=== PATIENT | female | born 1965 | race Two or more races ===

== ENCOUNTER 2020-02-26 09:48 | Day surgery (SDC) | payer OTHER ==
[2020-02-22 13:00] LABS: HEMATOCRIT 40.7 % (36.0-47.0); HEMOGLOBIN 14.1 g/dL (12.0-15.5); MEAN CORPUSCULAR HEMOGLOBIN 31.4 pg (27.0-33.4); MEAN CORPUSCULAR HGB CONC 34.7 g/dL (32.0-36.0); MEAN CORPUSCULAR VOLUME 91 fl (80-97); PLATELET COUNT 280 10^3/uL (150-450); RED CELL DISTRIBUTION WIDTH 13.3 % (11.5-14.0); WHITE BLOOD COUNT 4.7 10^3/uL (4.0-10.5)
[2020-02-22 13:15] LABS: INTERNATIONAL RATION (INR) 0.97; PROTHROMBIN TIME 13.1 SEC (11.4-15.4)
[2020-02-22 13:16] LABS: PARTIAL THROMBOPLASTIN TIME 33.5 SEC (23.5-35.8)
[~2020-02-26 09:48] MED LIST: CEFAZOLIN 1 GM/D5W RTU 1 GM/50 ML RTUPB IV PRN; CEFAZOLIN SODIUM 1 GM in DEXTROSE 5%-WATER 50 ML IV PRN
[2020-02-26] MEDS ORDERED: CEFAZOLIN 1 GM/D5W RTU 1 GM/50 ML RTUPB IV ONE (09:50)
[2020-02-26] MEDS ORDERED: SODIUM BICARBONATE 4.2% INJ (2.5 MEQ/5 ML) VIAL ONE (10:15)
[2020-02-26] MEDS ORDERED: LIDOCAINE 1%/EPINEPHRINE INJ 20 ML VIAL ONE (10:15)
[2020-02-26] MEDS ORDERED: MIDAZOLAM 2 MG/2 ML INJ ONE ×2 (10:15→11:21)
[2020-02-26] MEDS ORDERED: FENTANYL CITRATE INJ/PF 100 MCG/2 ML AMPUL ONE (10:15)
[2020-02-26] MEDS ORDERED: KETAMINE HCL INJ 500 MG/10 ML VIAL ONE (10:15)
[2020-02-26] MEDS ORDERED: PROPOFOL INJ 200 MG/20 ML VIAL IV ONE (10:16)
[2020-02-26] MEDS ORDERED: POVIDONE-IODINE 5% OPH PREP SOLN 30 ML ONE (10:16)
[2020-02-26] MEDS ORDERED: GLYCOPYRROLATE 1 MG/5 ML VIAL ONE (10:59)
[2020-02-26] MEDS ORDERED: ONDANSETRON HCL INJ/PF 4 MG/2 ML SDV ONE (10:59)
[2020-02-26] MEDS ORDERED: HYDROMORPHONE HCL INJ/PF 2 MG/ML AMPULE ONE (11:22)
[2020-02-26] MEDS ORDERED: FENTANYL CITRATE INJ/PF 100 MCG/2 ML AMPUL IV PRN ×3 (12:22)
[2020-02-26] MEDS ORDERED: DIPHENHYDRAMINE HCL 50 MG/ML VIAL IV PRN (12:22)
[2020-02-26] MEDS ORDERED: MEPERIDINE HCL/PF INJ 25 MG/1 ML DISP.SYRIN IV PRN (12:22)
[2020-02-26] MEDS ORDERED: PROMETHAZINE HCL INJ 25 MG/1 ML VIAL IV PRN ×2 (12:22)
--- NOTE | 2020-02-26 12:58 | Operative Report ---
Operative Report DATE OF SURGERY: 02/26/20 PREOPERATIVE DIAGNOSIS: Mass of the left roman catholic area POSTOPERATIVE DIAGNOSIS: Deep mass of the left roman catholic area sub-muscular OPERATION: Excision of sub-muscular mass of the left roman catholic with reconstruction of the defect. SURGEON: GEORGINA VASQUEZ ANESTHESIA: LMAC TISSUE REMOVED OR ALTERED: Suspected lipoma COMPLICATIONS: None ESTIMATED BLOOD LOSS: Minimal PROCEDURE: The patient was brought into the operating room after being marked. The patient was placed in a supine position. The patient was then prepped with a Betadine scrub and Betadine solution. A timeout was performed. The area for resection was outlined. Injection of 1% lidocaine with epinephrine and bicarbonate was performed for its anesthetic and hemostatic effects. An incision was then made through the skin into the subcutaneous tissue. Dissection was performed [id number] to encounter the mass. Once the mass was encountered a dissection was performed 360 in order to remove the mass Retraction was used to facilitate exposure. Dissection was performed through the temporal parietal muscle and down onto the temporal fascia and onto the periosteum. The dissection was performed in the submuscular plane. [id number] the mass was dissected free of the surrounding tissue. Throughout the case hemostasis was achieved with the bipolar and the Bovie. Once the mass was completely dissected it was then removed. The area was washed with Betadine and sterile water solution. Hemostasis was confirmed. Closure was then performed using 4-0 Vicryl sutures. Because of the size of the mass deeper sutures were placed in order to minimize a deformity. The layers that were dissected were closed [id number] until we reached the deep dermis. 4-0 Vicryl was used for deep dermal sutures. A subcuticular stitch was placed using 4-0 PDS. A central support stitch was placed using 4-0 PDS. The wound was cleaned with Betadine prior to the final closure. Skin glue was applied with a light pressure dressing was applied. Patient was then reversed from anesthesia and taken to the [facility] for recovery. The approximate size of the mass was 4.2 cm measured externally but smaller externally. This dictation was performed with dragon naturally speaking. If there are any inconsistencies or errors please contact the physician. Subjective: No complaints Objective: Vital signs stable afebrile No bleeding Dressing intact Assessment and plan: Doing well. Elevate the operative site. Resume medications. Take antibiotics for 1 day Follow-up Full instructions were given to the patient and family and they understand Portions of this note may be dictated using [employer] voice recognition software. Occasional variations and spelling and vocabulary could be possible and are unintentional. Additionally, there is a chance that some errors may not be caught or corrected. Please notify the offer of any discrepancies noted or if any statements are unclear.
--- NOTE | 2020-02-26 13:01 | Discharge Summary ---
Discharge Summary (SDC) - Discharge Final Diagnosis: Suspected lipoma submuscular Date of Surgery: 02/26/20 Condition: Good Forms: ASU Anesthesia D/C Instruction, Discharge POC-Surgical Service Treatment or Instructions: After 4 days the top dressing can be removed. Then cleaning wound with peroxide . Antibiotics for 1 day, then discontinue. Elevate operative area to decrease swelling. Do not strain, or lift heavy objects. Call for excessive bleeding, increased temperature of 101, uncontrolled pain, or excessive nausea or vomiting. You may reach Dr. Vasquez through his office at [phone]. In the event of an emergency after hours, then contact Dr. Vasquez through [facility]. Return to the office for a postop check on . The time will be scheduled by the nursing staff of [facility] prior to discharge. Please give the patient a copy of their labs and EKG so they can bring this to their PMD. Thank you Portions of this note may be dictated using [employer] voice recognition software. Occasional variations and spelling and vocabulary could be possible and are unintentional. Additionally, there is a chance that some errors may not be caught or corrected. Please notify the offer of any discrepancies noted or if any statements are unclear. Referrals: GEORGINA VASQUEZ MD [ACTIVE STAFF] - Discharge Diet: As Tolerated Discharge Activity: No Lifting/Push/Pulling Report the Following to Your Physician Immediately: Unusual Bleeding - Keep head elevated. No bending or straining. Take top dressing off in 4 days. There is glue on the incision. Clean this twice a day with peroxide. Follow-up in the office on Tuesday.
[2020-02-26 14:33] VITALS: BP 108/70
--- NOTE | 2020-02-26 19:37 | EKG REPORT ---
SEVERITY:- NORMAL ECG - SINUS RHYTHM : Confirmed by: Melissa Goyal 26-Feb-2020 19:36:43
== END 2020-02-26 14:30 | disposition home or self-care (01) ==
LOC: OROUT 09:48
PROVIDERS: ATTEND Plastic Surgery
DX: D17.0 Benign lipomatous neoplasm of skin and subcutaneous tissue of head, face and neck (principal); Z03.818 Encounter for observation for suspected exposure to other biological agents ruled out; Z87.891 Personal history of nicotine dependence
CPT/HCPCS: 36415; 85027; 85610; 85730; 87635; 88304 ×2; 93005; 93010; 00300; 20999; J2250; J0690; J3490 ×5; J1170; J2405; J2704; C9803; 300; J3010